=== PATIENT | male | born 1975 | race Caucasian/White ===

== ENCOUNTER 2017-07-25 20:14 | Emergency (ER) | payer BC ==
[2017-07-25] MEDS ORDERED: Morphine INJ* 4 MG/ML 1 ML CARPUJECT IV PRN (20:36)
[2017-07-25] MEDS ORDERED: Ondansetron INJ* 2 MG/ML VIAL IV ONE (20:36)
[2017-07-25] MEDS ORDERED: Aspirin 81 mg CHEW TAB* 81 MG TAB.CHEW PO ONE (20:36)
[2017-07-25] MEDS ORDERED: Morphine INJ* 4 MG/ML 1 ML SYRINGE (NEW SYRINGE VERSION) ONE (20:43)
[2017-07-25] MEDS ORDERED: Morphine INJ* 4 MG/ML 1 ML SYRINGE (NEW SYRINGE VERSION) IV ONE (20:45)
[2017-07-25 20:52] LABS: ABS Basophils 0.1 10^3/ul (0-0.2); ABS Eosinophils 0.1 10^3/ul (0-0.6); ABS Lymphocytes 4.3 10^3/ul (1.0-4.8); ABS Monocytes 0.7 10^3/ul (0-0.8); ABS Neutrophils 3.1 10^3/ul (1.5-7.7); ABS Nucleated RBC 0 10^3/ul; Eosinophil % 1.6 % (0-6); Hematocrit 44 % (42-52); Lymphocyte % 51.7 % (25-47); Mean Corpuscular HGB Conc 34 g/dl (31-36); Mean Corpuscular Hemoglobin 32 pg (27-31); Mean Corpuscular Volume 93 fL (80-94); Mean Platelet Volume 6.7 um3 (7.4-10.4); Nucleated Red Blood Cells % 0.1; Platelet Count 399 10^3/ul (150-450); Red Blood Count 4.72 10^6/ul (4.0-5.4); Red Cell Distribution Width 13 % (10.5-15); White Blood Count 8.2 10^3/ul (3.5-10.8)
[2017-07-25 20:59] LABS: INR 0.92 (0.77-1.02)
[2017-07-25 21:03] LABS: EGFR Non-African American 90.9 (>60)
--- NOTE | 2017-07-25 21:05 | RAD ---
HISTORY: Chest pain COMPARISONS: April 21, 2011 VIEWS: 1: frontal portable view of the chest at 8:55 PM FINDINGS: LINES AND TUBES: None. CARDIOMEDIASTINAL SILHOUETTE: The cardiomediastinal silhouette is normal for portable technique. PLEURA: The costophrenic angles are sharp. No pleural abnormalities are noted. LUNG PARENCHYMA: The lungs are clear. ABDOMEN: The upper abdomen is clear. There is no subphrenic gas. BONES AND SOFT TISSUES: No bone or soft tissue abnormalities are noted. IMPRESSION: NO ACTIVE CARDIOPULMONARY DISEASE.
[2017-07-25 22:06] VITALS: BP 126/96
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
== END 2017-07-25 22:18 | disposition home or self-care (01) ==
LOC: ED 20:14
DX: R07.89 Other chest pain (principal); R20.2 Paresthesia of skin; R61 Generalized hyperhidrosis
CPT/HCPCS: 36415; 71045; 80053; 82550; 83735; 83880; 84484; 85025; 85610; 85730; 93005; 96374; 96375; 99283; A9270-GY; J2270; J2405

== ENCOUNTER 2018-03-07 07:48 | Emergency (ER) | payer BC ==
[2018-03-07 08:00] VITALS: BP 173/82
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
--- NOTE | 2018-03-08 14:43 | UC ---
- Progress Note Progress Note: No imaging Discharge - Sign-Out/Discharge Documenting (check all that apply): Post-Discharge Follow Up All imaging exams completed and their final reports reviewed: Yes - Discharge Plan Condition: Stable Disposition: HOME Patient Education Materials: Dysuria (ED) Referrals: Juan Manuel Irizarry MD [Primary Care Provider] - Randall Dozier MD [Medical Doctor] - - Billing Disposition and Condition Condition: STABLE Disposition: Home
== END 2018-03-07 09:35 | disposition home or self-care (01) ==
LOC: UCEAST 07:48
DX: R30.0 Dysuria (principal)
CPT/HCPCS: 81003; 87491; 87591; 99211; G0463